=== PATIENT | male | born 1990 | race Caucasian/White ===

== ENCOUNTER 2017-04-06 21:48 | Emergency (ER) | payer OTHER ==
--- NOTE | 2017-04-06 22:31 | EDPHY ---
H & P Stated Complaint: pt c/o rectal bleeding starting today, noticed blood in underware Time Seen by Provider: 04/06/17 22:24 HPI/ROS: CHIEF COMPLAINT: rectal bleeding HISTORY OF PRESENT ILLNESS: 26-year-old male presents emergency department complaining of rectal bleeding. Patient reports 3 days ago he woke up in the middle the night with pruritus to his rectum. He then noted tenderness when he would wipe after a bowel movement. Patient denies pain with bowel movements, no history of constipation, no history of hemorrhoids. Tonight he noticed an area of dried blood on his underwear that made him nervous. He reports a small amount of oozing throughout the evening. Patient denies abdominal pain, no fevers, no shortness of breath or dizziness. REVIEW OF SYSTEMS: A comprehensive 10 point review of systems is otherwise negative aside from elements mentioned in the history of present illness. Source: Patient Exam Limitations: No limitations - Personal History Current Tetanus Diphtheria and Acellular Pertussis (TDAP): Yes - Medical/Surgical History Hx Asthma: No Hx Chronic Respiratory Disease: No Hx Diabetes: No Hx Cardiac Disease: No Hx Renal Disease: No Hx Cirrhosis: No Hx Alcoholism: No Hx HIV/AIDS: No Hx Splenectomy or Spleen Trauma: No Other PMH: denies - Social History Smoking Status: Never smoked - Physical Exam Exam: GEN: Awake, alert, oriented, no acute distress RESP: nl resp effort Abdomen: Soft, nontender Rectal: Exam done with torch solderer, small external thrombosed hemorrhoid MSK: Normal appearing SKIN: No rash Constitutional: Initial Vital Signs Temperature (C) 36.5 C 04/06/17 22:06 Heart Rate 59 L 04/06/17 22:06 Respiratory Rate 18 04/06/17 22:06 Blood Pressure 128/85 H 04/06/17 22:06 O2 Sat (%) 98 04/06/17 22:06 O2 Delivery Mode Room Air Allergies/Adverse Reactions: No Known Allergies Allergy (Unverified 04/06/17 22:05) Home Medications: Medication Instructions Recorded Claritin 04/06/17 Medical Decision Making Procedures: Thrombosed hemorrhoid excision- Hemorrhoid anesthetized with 1 mL of 1% lidocaine with epinephrine. Thrombosed hemorrhoid lanced with 15 blade scalpel, clot removed without difficulty. Pt tolerated well. Departure - Departure Disposition: Home, Routine, Self-Care Clinical Impression: External thrombosed hemorrhoids Condition: Good Instructions: Thrombosed Hemorrhoid (ED) Additional Instructions: Use [id number] preparation H. Warm Sitz baths. Drink plenty of water, eat more fiber, start taking MiraLax or Metamucil to keep your stool soft. Return to the emergency department for worsening symptoms, new symptoms or concerns. Follow-up with the general surgeon listed for recurrent hemorrhoids. Referrals: Sherif Jiménez MD [Medical Doctor] - As per Instructions (General surgery)
[2017-04-06 23:03] VITALS: BP 127/83; PULSE 61; RESP 16; TEMP 98.1; O2SAT 97
== END 2017-04-06 23:01 | disposition home or self-care (01) ==
PROC: 069Y0ZZ Drainage of Lower Vein, Open Approach (ICD-10-PCS; principal; 2017-04-06)
DX: K64.5 Perianal venous thrombosis (principal)

== ENCOUNTER 2017-06-19 09:12 | Emergency (ER) | payer OTHER ==
[2017-06-19 09:17] VITALS: BP 129/71; PULSE 55; RESP 17; TEMP 97.9; O2SAT 95
[2017-06-19] MEDS ORDERED: PENICILLIN VK 250MG PREPACK#6 BTL TAKEHOME ONE (09:28)
--- NOTE | 2017-06-19 09:32 | EDPHY ---
General Narrative: CHIEF COMPLAINT: Dental pain HISTORY OF PRESENT ILLNESS: Patient complains of 2 days history of right-sided dental pain. This is primarily on the upper side of the teeth, alveolar ridge. No fever. No chills. No trismus. No difficulty swallowing. No purulence. No trauma or injury. No IV drug use. No lethargy or malaise. Contacted his dentist at [facility], the instructed to come here to the holiday. No acute distress. No metal implants. No other associated complaints or modifying factors. REVIEW OF SYSTEMS: Ten systems reviewed and are negative unless otherwise noted in the HPI PCP: [facility] SPECIALISTS: None PAST MEDICAL HISTORY: None PAST SURGICAL HISTORY: None SOCIAL HISTORY: Currently student at [employer]. Originally from [place] FAMILY HISTORY: EXAMINATION General Appearance: Alert, no distress Head: normocephalic, atraumatic noncontributory Eyes: Pupils equal and round, no conjunctival pallor or injection ENT, Mouth: Mucous membranes moist. Uvula is midline. Airway is widely patent. The posterior pharynx is clear without exudate or edema. The upper alveolar ridge is without erythema, fluctuance or abscess. No lesions of the oral mucosa as best as I can visualize Neck: Normal inspection, supple, non-tender for midline Respiratory: Lungs are clear to auscultation. No wheezing, rhonchi or crackles Cardiovascular: Regular rate and rhythm trachea. No murmur Neurological: A&O, nonfocal, strength symmetric. Skin: Warm and dry, no rash. No lesions of the palms of the hands the fingernails. Extremities: Nontender, no pedal edema Psychiatric: Mood and affect normal DIFFERENTIAL DIAGNOSES: Including but not limited to dental abscess, pulpitis, dental pain, dental caries MDM: 9:30 a.m. Right-sided dental pain with no trismus, no abscess, no pulpitis, no TMJ, and no evidence of external soft tissue abnormality. Treat him with short course of penicillin for the possibility of underlying dental abscess. I do not feel he warrants any imaging or laboratory studies at this time. I would like him to take this to completion and then follow-up with dentist. - History Smoking Status: Never smoked - Objective Vital Signs: Initial Vital Signs Temperature (C) 97.9 F 06/19/17 09:15 Heart Rate 55 L 06/19/17 09:15 Respiratory Rate 17 06/19/17 09:15 Blood Pressure 129/71 H 06/19/17 09:15 O2 Sat (%) 95 06/19/17 09:15 O2 Delivery Mode Room Air Allergies/Adverse Reactions: No Known Allergies Allergy (Verified 06/19/17 09:15) Home Medications: Medication Instructions Recorded Claritin 04/06/17 Penicillin V Potassium [Pen Vk 500 mg PO BID 10 Days tab 06/19/17 500mg (*)] Vicodin 5-300 mg Tablet 06/19/17 Medications Given: Discontinued Medications Penicillin V Potassium (Pen Vk 250 Mg Prepack#6) 1 btl TAKEHOME EDNOW ONE PRN Reason: Protocol Stop: 06/19/17 09:29 Last Admin: 06/19/17 09:40 Dose: 1 btl Departure - Departure Disposition: Home, Routine, Self-Care Clinical Impression: Pain, dental Condition: Good Instructions: Toothache (ED) Additional Instructions: 1. 500 mg twice daily of penicillin 2. Anti-inflammatories [id number] as discussed 3. Follow up with dentist for definitive care 4. Return to ED for worsening pain, fever, trismus, fluctuance of the gum line Referrals: Latrice Miller MD [[facility] [place] Primary Care Provider] - As per Instructions Prescriptions: Penicillin V Potassium [Pen Vk 500mg (*)] 500 mg PO BID 10 Days tab
== END 2017-06-19 09:42 | disposition home or self-care (01) ==
DX: K08.89 Other specified disorders of teeth and supporting structures (principal)